=== PATIENT | female | born 1990 ===

== ENCOUNTER 2023-02-01 06:39 | Inpatient (IN) | payer OTHER ==
[~2023-02-01] VITALS: Ht 160 cm; Wt 2.7 kg
[2023-02-01 08:12] LABS: HEMATOCRIT 34.7 % (36.0-45.00); HEMOGLOBIN 11.6 g/dL (12.0-15.00); MEAN CELL VOLUME 86.6 fL (80.00-100.00); MEAN CORPUSCULAR HEMOGLOBIN 28.9 pg (27.00-32.0); MEAN CORPUSCULAR HGB CONC 33.4 g/dl (32.0-36.0); PLATELET COUNT 183 K/uL (150-450); RED BLOOD COUNT 4.01 M/uL (4.00-6.00); RED CELL DISTRIBUTION WIDTH 13.5 % (11.5-14.5); URINE APPEARANCE Cloudy; URINE BILIRRUBIN Negative (NEGATIVE); URINE BLOOD Negative; URINE COLOR Yellow; URINE GLUCOSE Negative (NEGATIVE); URINE LEUKOCYTE Small; URINE NITRATE Negative; URINE PROTEIN Negative (NEGATIVE); URINE UROBILINOGEN 0.2 E.U./dl
[2023-02-01 08:15] LABS: URINE BACTERIA 2799.6 uL (0.0-1933); URINE EPITHELIAL CELLS 92.4 uL (0.0-38.8); URINE RBC 3.1 uL (0.0-20.8); URINE WBC 75.4 uL (0.0-23.2)
[2023-02-01] MEDS ORDERED: PRENATAL DHA200 MG PO (08:19)
[2023-02-01] MEDS ORDERED: SINGULAIR10 MG PO (08:19)
[2023-02-01] MEDS ORDERED: ZYRTEC10 MG PO (08:20)
[2023-02-01 08:52] LABS: INR 0.96; PARTIAL THROMBOPLASTIN TIME 27.4 SECONDS (22.0-34.0); PROTHROMBIN TIME 10.1 SECONDS (9.0-11.5)
[2023-02-01 09:04] LABS: ALBUMIN 2.5 gm/dL (3.4-5.0); BILIRUBIN TOTAL 0.24 mg/dL (0.3-1.2); CALCIUM 8.4 mg/dL (8.5-10.1); CREATININE SERUM 0.49 mg/dL (0.55-1.02); GFR 145.44; GLOBULINA 3.3 G/DL (2.4-3.5); POTASSIUM 3.82 mEq/L (3.5-5.1); TOTAL PROTEIN 5.8 gm/dL (6.4-8.2)
[2023-02-01 21:45] LABS: ABG PH 7.286 (7.35-7.45); ABG PO2 16.8 mmHg (80-100); ABG pCO2 44.4 mmHg (35-45); SaO2 17.9 %
[2023-02-01 21:46] LABS: BASE EXCESS -5.9 mmol/l; BICARBONATE 20.7 mmol/l (23-25); o2 21 %
[2023-02-02 07:13] LABS: HEMATOCRIT 30.5 % (36.0-45.00); HEMOGLOBIN 10.1 g/dL (12.0-15.00); MEAN CELL VOLUME 86.3 fL (80.00-100.00); MEAN CORPUSCULAR HEMOGLOBIN 28.7 pg (27.00-32.0); MEAN CORPUSCULAR HGB CONC 33.3 g/dl (32.0-36.0); PLATELET COUNT 159 K/uL (150-450); RED BLOOD COUNT 3.53 M/uL (4.00-6.00); RED CELL DISTRIBUTION WIDTH 13.7 % (11.5-14.5)
[2023-02-04] MEDS ORDERED: Tylenol #3 PO (12:41)
[2023-02-04] MEDS ORDERED: NAPR500T14 PO (12:41)
== END 2023-02-04 13:39 | disposition home or self-care (01) | DRG 788 ==
LOC: LDR 06:39 → O/R 15:49 → OB/GYN 18:10
PROVIDERS: Student in an Organized Health Care Education/Training Program; ADMIT Obstetrics & Gynecology; ATTEND Obstetrics & Gynecology
PROC: 4A1HXCZ Monitoring of Products of Conception, Cardiac Rate, External Approach (ICD-10-PCS; 2023-02-01)
PROC: 10D00Z1 Extraction of Products of Conception, Low, Open Approach (ICD-10-PCS; principal; 2023-02-01 15:45)
DX: O24.420 Gestational diabetes mellitus in childbirth, diet controlled (principal); Z3A.38 38 weeks gestation of pregnancy; Z37.0 Single live birth; Z20.822 Contact with and (suspected) exposure to COVID-19